=== PATIENT | female | born 1965 | race Caucasian/White ===

== ENCOUNTER 2022-01-18 08:34 | Emergency (ER) | payer BC, OTHER ==
[2022-01-18] MEDS ORDERED: Lidocaine 2% 20 ML MDV INFILT ONE (08:35)
[2022-01-18] MEDS ORDERED: Diphtheria,Pertussis(Acell),Tetanus Vaccine 0.5 ML Syringe IM ONE (10:25)
== END 2022-01-18 10:54 | disposition home or self-care (01) ==
LOC: FB.ED 08:34
DX: S62.636A Displaced fracture of distal phalanx of right little finger, initial encounter for closed fracture (principal); S61.216A Laceration without foreign body of right little finger without damage to nail, initial encounter; Z23 Encounter for immunization; W23.1XXA Caught, crushed, jammed, or pinched between stationary objects, initial encounter
CPT/HCPCS: 12002; 73140-F9; 90471; 90715; 99283-25